=== PATIENT | female | born 1950 | race Caucasian/White ===

== ENCOUNTER 2016-09-14 12:46 | Outpatient (CLI) | payer MEDICARE, OTHER | END 2016-09-14 12:47 | disposition home or self-care (01) | DX: I10 Essential (primary) hypertension (principal); G47.33 Obstructive sleep apnea (adult) (pediatric) ==

== ENCOUNTER 2016-11-18 08:33 | Outpatient (CLI) | payer MEDICARE, OTHER ==
[2016-11-18 09:06] LABS: ALBUMIN/GLOBULIN RATIO 1.6 (1.0-2.2); BILIRUBIN,TOTAL 0.8 mg/dL (0.2-1.0); BUN - BLOOD UREA NITROGEN 18 mg/dL (6-20); CALCIUM 9.4 mg/dL (8.5-10.3); CARBON DIOXIDE - CO2 29 mmol/L (21-32); CHLORIDE 100 mmol/L (101-111); CHOL/HDL RATIO 3.1 (<4.4); CHOLESTEROL 256 mg/dL; CREATININE 0.7 mg/dL (0.4-1.0); GFR - MDRD 84 (>89); GLUCOSE 107 mg/dL (70-100); HDL CHOLESTEROL 82 mg/dL; POTASSIUM 3.6 mmol/L (3.5-5.0); SODIUM 136 mmol/L (135-145); TOTAL PROTEIN 6.6 g/dL (6.7-8.2); TRIGLYCERIDES 70 mg/dL; VLDL CHOLESTEROL 14 mg/dL
[2016-11-18 09:07] LABS: HEMOGLOBIN A1C 0.58 g/dL
== END 2016-11-18 08:34 | disposition home or self-care (01) ==
LOC: LAB 08:33
PROVIDERS: ATTEND Physician Assistant
DX: R73.01 Impaired fasting glucose (principal); I10 Essential (primary) hypertension; E78.5 Hyperlipidemia, unspecified
CPT/HCPCS: 36415; 80053; 80061; 83036

== ENCOUNTER 2017-02-08 08:33 | Outpatient (CLI) | payer MEDICARE, OTHER ==
[2017-02-08 09:23] LABS: BASOPHILS # (AUTO) 0.1 10^3/uL (0.0-0.1); BASOPHILS % (AUTO) 1.1 %; EOSINOPHILS # (AUTO) 0.1 10^3/uL (0.0-0.7); EOSINOPHILS % (AUTO) 2.2 %; HCT - HEMATOCRIT 40.6 % (37.0-47.0); HGB - HEMOGLOBIN 13.9 g/dL (12.0-16.0); LYMPHOCYTES # (AUTO) 2.4 10^3/uL (1.5-3.5); LYMPHOCYTES % (AUTO) 43.5 %; MEAN CORPUSCULAR HEMOGLOBIN 28.8 pg (27.0-31.0); MEAN CORPUSCULAR HGB CONC 34.1 g/dL (32.0-36.0); MEAN CORPUSCULAR VOLUME 84.4 fL (81.0-99.0); MEAN PLATELET VOLUME 7.3 fL (7.9-10.8); MONOCYTES # (AUTO) 0.3 10^3/uL (0.0-1.0); MONOCYTES % (AUTO) 5.8 %; NEUTROPHILS # (AUTO) 2.7 10^3/uL (1.5-6.6); NEUTROPHILS % (AUTO) 47.4 %; RED BLOOD COUNT 4.81 10^6/uL (4.20-5.40); RED CELL DISTRIBUTION WIDTH 13.4 % (12.0-15.0); UNCORRECTED WHITE BLOOD COUNT 5.6 x10^3/uL; WHITE BLOOD COUNT 5.6 x10^3/uL (4.8-10.8)
[2017-02-08 09:42] LABS: ALBUMIN/GLOBULIN RATIO 1.7 (1.0-2.2); CALCIUM 9.7 mg/dL (8.5-10.3); CREATININE 0.6 mg/dL (0.4-1.0); POTASSIUM 3.3 mmol/L (3.5-5.0)
== END 2017-02-08 08:34 | disposition home or self-care (01) ==
LOC: LAB 08:33
PROVIDERS: ATTEND Physician Assistant
DX: E78.5 Hyperlipidemia, unspecified (principal); I10 Essential (primary) hypertension
CPT/HCPCS: 36415; 80053; 85025

== ENCOUNTER 2017-03-09 11:43 | Outpatient (CLI) | payer MEDICARE, OTHER ==
[2017-03-09 12:18] LABS: ALBUMIN/GLOBULIN RATIO 1.6 (1.0-2.2); BILIRUBIN,TOTAL 0.8 mg/dL (0.2-1.0); CALCIUM 9.6 mg/dL (8.5-10.3); CREATININE 0.7 mg/dL (0.4-1.0); POTASSIUM 3.7 mmol/L (3.5-5.0); TOTAL PROTEIN 6.9 g/dL (6.7-8.2)
== END 2017-03-09 11:44 | disposition home or self-care (01) ==
LOC: LAB 11:43
PROVIDERS: ATTEND Family Medicine
DX: E87.6 Hypokalemia (principal)
CPT/HCPCS: 36415; 80053

== ENCOUNTER 2017-04-04 13:40 | Outpatient (CLI) | payer MEDICARE, OTHER | END 2017-04-04 13:41 | disposition home or self-care (01) | LOC: SC 13:40 | PROVIDERS: ATTEND Nurse Practitioner Family | DX: G47.33 Obstructive sleep apnea (adult) (pediatric) (principal) | CPT/HCPCS: 99214; G0463; 99212 ==

== ENCOUNTER 2017-05-12 10:52 | Outpatient (CLI) | payer MEDICARE, OTHER ==
--- NOTE | 2017-05-12 17:40 | XRAY Report ---
FOUR VIEW MANDIBLE: 05/12/2017 CLINICAL INDICATION: Jaw pain. Le's, AP, bilateral oblique views of the mandible demonstrate no evidence of mandibular fracture. The mandibular condyles are normally seated in the temporal fossa bilaterally. No mandibular condyl ar erosion is identified. IMPRESSION: NORMAL MANDIBLE. JOB #: [id number] EXT JOB #:[id number]
--- NOTE | 2017-05-12 17:41 | XRAY Report ---
COMPLETE CERVICAL SPINE: 05/12/2017 CLINICAL INDICATION: Neck pain. AP, lateral, odontoid, bilateral oblique views of the cervical spine demonstrate normal height and al ignment of the vertebral bodies. Mild facet arthropathy is present. There is no evidence of fractur es or subluxation. No significant osseous neural foraminal narrowing is present. IMPRESSION: MILD FACET ARTHROPATHY. JOB #: [id number] EXT JOB #:[id number]
--- NOTE | 2017-05-12 17:44 | XRAY Report ---
THREE VIEW LUMBAR SPINE: 05/12/2017 CLINICAL INDICATION: Back pain. AP, lateral, coned-down views of the lumbar spine demonstrate degenerative disk disease, with disk sp leia narrowing worst at L5-S1. There is no evidence of compression fracture or subluxation. The bettina l gas pattern is normal. IMPRESSION: DEGENERATIVE DISK DISEASE, WORST AT L5-S1. JOB #: [id number] EXT JOB #:[id number]
== END 2017-05-12 10:53 | disposition home or self-care (01) ==
LOC: DI 10:52
PROVIDERS: ATTEND Physician Assistant Medical
DX: R68.84 Jaw pain (principal); M47.892 Other spondylosis, cervical region; M51.36 Other intervertebral disc degeneration, lumbar region
CPT/HCPCS: 70110; 72050; 72100

== ENCOUNTER 2017-06-20 15:16 | Outpatient (CLI) | payer MEDICARE, OTHER ==
--- NOTE | 2017-06-22 15:59 | Mammography Report ---
DATE OF SERVICE: 06/20/2017 DIGITAL SCREENING MAMMOGRAM: 06/20/2017 CLINICAL INDICATION: A 66-year-old with history of late childbearing, personal history of left breast cancer, status post lumpectomy and radiation therapy. COMPARISON: 05/2016, 05/2015, 05/2014, 04/2013, 03/2012, 01/2011, 11/2009. TECHNIQUE: Routine CC and MLO projections were obtained of the breasts. FINDINGS: The breasts demonstrate scattered fibroglandular densities bilaterally. Coarse and punctate, typically benign calcifications are present. Postoperative and posttreatment changes in the left breast are stable. No suspicious masses, clustered microcalcifications, or regions of architectural distortion are identified. IMPRESSION: BENIGN FINDINGS. RECOMMENDATION: ROUTINE ANNUAL SCREENING UNLESS OTHERWISE CLINICALLY INDICATED. BIRADS CATEGORY 2-BENIGN FINDINGS. STANDARD QUALIFYING STATEMENTS: 1. This examination was reviewed with the aid of Computer-Aided Detection (CAD). 2. A negative or benign imaging report should not delay biopsy if clinically suspicious findings are present. Consider surgical consultation if warranted. More than 5% of cancers are not identified by imaging. 3. Dense breasts may obscure an underlying neoplasm. TD: 06/22/2017 16:58
== END 2017-06-20 15:17 | disposition home or self-care (01) ==
LOC: DI 15:16
PROVIDERS: ATTEND Physician Assistant Medical
DX: Z12.39 Encounter for other screening for malignant neoplasm of breast (principal); Z85.3 Personal history of malignant neoplasm of breast
CPT/HCPCS: 77067

== ENCOUNTER 2017-06-24 14:28 | Outpatient (CLI) | payer MEDICARE, OTHER ==
[2017-06-24 19:05] LABS: BASOPHILS # (AUTO) 0.1 10^3/uL (0.0-0.1); BASOPHILS % (AUTO) 1.1 %; EOSINOPHILS # (AUTO) 0.1 10^3/uL (0.0-0.7); EOSINOPHILS % (AUTO) 1.9 %; HGB - HEMOGLOBIN 14.7 g/dL (12.0-16.0); LYMPHOCYTES # (AUTO) 3.1 10^3/uL (1.5-3.5); LYMPHOCYTES % (AUTO) 45.8 %; MEAN CORPUSCULAR HEMOGLOBIN 28.9 pg (27.0-31.0); MEAN CORPUSCULAR HGB CONC 32.9 g/dL (32.0-36.0); MEAN CORPUSCULAR VOLUME 87.8 fL (81.0-99.0); MEAN PLATELET VOLUME 7.9 fL (7.9-10.8); MONOCYTES # (AUTO) 0.3 10^3/uL (0.0-1.0); MONOCYTES % (AUTO) 4.7 %; NEUTROPHILS # (AUTO) 3.1 10^3/uL (1.5-6.6); NEUTROPHILS % (AUTO) 46.5 %; PLT - PLATELET COUNT 267 10^3/uL (130-450); RED BLOOD COUNT 5.08 10^6/uL (4.20-5.40); RED CELL DISTRIBUTION WIDTH 13.1 % (12.0-15.0); WHITE BLOOD COUNT 6.8 x10^3/uL (4.8-10.8)
[2017-06-24 19:18] LABS: CALCIUM 9.5 mg/dL (8.5-10.3); CREATININE 0.7 mg/dL (0.4-1.0)
== END 2017-06-24 14:29 | disposition home or self-care (01) ==
LOC: LAB.WCP 14:28
PROVIDERS: ATTEND Physician Assistant Medical
DX: I10 Essential (primary) hypertension (principal); E55.9 Vitamin D deficiency, unspecified
CPT/HCPCS: 36415; 80048; 82306; 85025

== ENCOUNTER 2017-11-03 12:29 | Outpatient (CLI) | payer MEDICARE, OTHER ==
--- NOTE | 2017-11-03 14:28 | MRI Report ---
EXAM: MRI LUMBAR SPINE WITHOUT CONTRAST EXAM DATE: 11/03/2017 01:10 PM. CLINICAL HISTORY: Chronic low back pain. COMPARISON: Lumbar spine radiography from 05/12/2017. TECHNIQUE: Multiplanar, multisequence T1-weighted and fluid-sensitive sequences of the lumbar spine f rom T12 to S1 without contrast. Other: None. FINDINGS: Spinal Cord: The conus terminates at L1-L2. The conus medullaris and cauda equina are unremarkable. Alignment: No scoliosis or spondylolisthesis. Bone Marrow: Five [id number]-[id number] lumbar vertebral bodies are assumed. There is a probable hemangioma or focal fatty marrow deposit within the T12 vertebral body. Heterogeneous marrow signal composed of hematopoietic and fatty marrow. No bone lesions. No acute fracture. Disk Levels/Facets: T10-T11: Small left foraminal disk protrusion. Mild left foraminal stenosis. Note, axial images were not obtained at this disk level. T11-T12: Unremarkable. T12-L1: There is a small T1 isointense and T2 hypointense extradural focus within the left anterolate ral aspect of the spinal canal at the T12 level. This area is not imaged in the axial plane. L1-L2: There is a similar appearing small T1 isointense and T2 hypointense extradural focus within th e left anterolateral aspect of the spinal canal at the L1 level. This area is not imaged in the axial plane. L2-L3: Tiny right foraminal disk protrusion. Minimal right foraminal narrowing. L3-L4: Minimal disk bulge. Mild to moderate ligamentum flavum thickening and facet arthropathy. Mild right foraminal stenosis. L4-L5: Mild to moderate facet arthropathy. Mild to moderate right and mild left foraminal stenoses. L5-S1: Type I degenerative endplate changes. Moderate to severe disk space narrowing. Minimal disk bu lge. Mild facet arthropathy. Mild foraminal stenoses. Musculature: Mild fatty atrophy of the posterior paraspinal muscles. Other: The partially visualized retroperitoneum is unremarkable. IMPRESSION: 1. Small T1 isointense and T2 hypointense extradural foci of tissue within the left anterolateral asp ect of the spinal canal at the T12 and L1 levels. Differential may include part of the basivertebral venous plexus, extruded disk tissue or other mass lesion. These foci of tissue are not completely to luated or imaged on this exam. Recommend follow-up T1 and T2 weighted imaging without and with intrav enous contrast at these levels. 2. Moderate to severe disk space narrowing at L5-S1. Minimal disk bulge. Mild foraminal stenoses. 3. Tiny right foraminal disk protrusion at L2-L3. Minimal right foraminal narrowing. 4. Minimal disk bulge at L3-L4. Mild right foraminal stenosis. 5. Mild to moderate right and mild left foraminal stenoses at L4-L5. Comment: The following findings are so common in adults without low back pain that while we report th eir presence, they must be interpreted with caution and in the context of the clinical situation. (Re celeste Vogel et al, Spine 2001) Prevalence of findings in patients without low back pain: Disk degeneration (any evidence): 92% Disk desiccation/T2 signal loss: 83% Disk height loss: 56% Disk bulge: 64% Disk protrusion: 32% Annular tear/high intensity zone: 38% [facility] Referring Provider Line: [phone] SITE ID: [id number]
== END 2017-11-03 12:30 | disposition home or self-care (01) ==
LOC: DI 12:29
PROVIDERS: ATTEND Physician Assistant Medical
DX: M54.5 Low back pain (principal); C50.912 Malignant neoplasm of unspecified site of left female breast; M51.26 Other intervertebral disc displacement, lumbar region; M48.061 Spinal stenosis, lumbar region without neurogenic claudication
CPT/HCPCS: 72148

== ENCOUNTER 2017-11-15 13:33 | Outpatient (CLI) | payer MEDICARE, OTHER ==
[2017-11-15 13:52] LABS: BASOPHILS # (AUTO) 0.1 10^3/uL (0.0-0.1); BASOPHILS % (AUTO) 1.3 %; EOSINOPHILS # (AUTO) 0.2 10^3/uL (0.0-0.7); EOSINOPHILS % (AUTO) 2.5 %; HGB - HEMOGLOBIN 14.1 g/dL (12.0-16.0); LYMPHOCYTES # (AUTO) 2.9 10^3/uL (1.5-3.5); LYMPHOCYTES % (AUTO) 44.5 %; MEAN CORPUSCULAR HEMOGLOBIN 29.5 pg (27.0-31.0); MEAN CORPUSCULAR HGB CONC 34.2 g/dL (32.0-36.0); MEAN CORPUSCULAR VOLUME 86.3 fL (81.0-99.0); MONOCYTES # (AUTO) 0.4 10^3/uL (0.0-1.0); MONOCYTES % (AUTO) 6.3 %; NEUTROPHILS # (AUTO) 2.9 10^3/uL (1.5-6.6); NEUTROPHILS % (AUTO) 45.4 %; PLT - PLATELET COUNT 227 10^3/uL (130-450); RED BLOOD COUNT 4.78 10^6/uL (4.20-5.40); RED CELL DISTRIBUTION WIDTH 13.3 % (12.0-15.0); WHITE BLOOD COUNT 6.5 x10^3/uL (4.8-10.8)
[2017-11-15 14:06] LABS: ALBUMIN 4.1 g/dL (3.2-5.5); ALBUMIN/GLOBULIN RATIO 1.5 (1.0-2.2); BILIRUBIN,TOTAL 0.7 mg/dL (0.2-1.0); CALCIUM 9.5 mg/dL (8.5-10.3); CREATININE 0.6 mg/dL (0.4-1.0); TOTAL PROTEIN 6.8 g/dL (6.7-8.2)
== END 2017-11-15 13:34 | disposition home or self-care (01) ==
LOC: LAB 13:33
PROVIDERS: ATTEND Family Medicine
DX: R53.83 Other fatigue (principal); I10 Essential (primary) hypertension; M54.5 Low back pain
CPT/HCPCS: 36415; 80053; 84443; 85025

== ENCOUNTER 2017-11-17 12:47 | Outpatient (CLI) | payer MEDICARE, OTHER ==
[2017-11-17] MEDS ORDERED: GADOBUTROL 10 MMOL/10 ML VIAL IVP ONE (13:36)
[2017-11-17] MEDS ORDERED: GADOBUTROL 10 MMOL/10 ML VIAL ONE (17:45)
--- NOTE | 2017-11-18 11:57 | MRI Report ---
EXAM: MRI LUMBAR SPINE WITHOUT AND WITH CONTRAST EXAM DATE: 11/17/2017 01:58 PM. CLINICAL HISTORY: 67-year-old female. Prior noncontrast MRI lumbar spine from 11/03/2017 suggesting T 1 isointense and T2 hypointense extradural foci of tissue within the left anterolateral aspect of spi nal canal at T12 and L1 levels. History of chronic low back pain. COMPARISONS: MRI lumbar spine 11/03/2017 TECHNIQUE: Multiplanar, multisequence T1-weighted and fluid-sensitive sequences of the lumbar spine f rom T12 to S1 before and after administration of intravenous contrast. Other: None. IV contrast: 8.5 mL Gadavist . FINDINGS: Spinal Cord: The conus terminates at L1. The conus medullaris and cauda equina are unremarkable. Alignment: No scoliosis or spondylolisthesis. Bone Marrow: Five tkb-hfi-btfyjmr lumbar vertebral bodies are assumed. No evidence of acute fracture. Diffusely heterogeneous and mottled appearance of the bone marrow, differential considerations invol ving both benign and malignant marrow replacing processes, commonly fatty replacement of the marrow. Modic type I degenerative endplate changes at L5-S1 level with endplate edema and enhancement. No bon e marrow edema elsewhere. T1 and T2 hyperintense lesions within T12, L3, and L4 levels are nonspecifi c, may represent benign hemangiomata. Similar to prior study performed on 11/03/2017, nonenhancing T2 hypointensity within the left anterio r epidural space at T12 level (series 601 image 15) and L1 level (series 601 image 10). No significant central canal narrowing at any visualized level. Mild bilateral foraminal narrowing at L2-L3 level. Irnu-fj-lzoatzce right and mild left foraminal narrowing at L3-L4 level. Bszn-fz-vzfrum te bilateral foraminal narrowing at L4-L5 level mild bilateral foraminal narrowing at L5-S1. Spinal Canal: No enhancing masses within the spinal canal. No epidural abscess. Musculature: Normal. No edema, abnormal enhancement, or fatty atrophy. Other: The visualized retroperitoneum is unremarkable. IMPRESSION: 1. Similar to prior study performed on 11/03/2017, nonenhancing T2 hypointensity within the left ante rior epidural space at T12 level (series 601 image 15) and L1 level (series 601 image 10). The etiolo gy is therefore likely benign, may represent chronic disk material versus venous structures, unlikely to represent a mass. There is no associated central canal narrowing. 2. Diffusely heterogeneous and mottled appearance of the bone marrow, differential considerations inv olving both benign and malignant marrow replacing processes, commonly fatty replacement of the marrow . 3. Modic type I degenerative endplate changes at L5-S1 level with endplate edema and enhancement. Mod ic type 1 changes may represent a source of pain. 4. No significant central canal narrowing at any visualized level. Mild bilateral foraminal narrowing at L2-L3 level. Btgp-xj-lhvekzqc right and mild left foraminal narrowing at L3-L4 level. Mild-to-mod erate bilateral foraminal narrowing at L4-L5 level mild bilateral foraminal narrowing at L5-S1. Comment: The following findings are so common in adults without low back pain that while we report th eir presence, they must be interpreted with caution and in the context of the clinical situation. (Re celeste Vogel et al, Spine 2001) Prevalence of findings in patients without low back pain: Disk degeneration (any evidence): 92% Disk desiccation/T2 signal loss: 83% Disk height loss: 56% Disk bulge: 64% Disk protrusion: 32% Annular tear/high intensity zone: 38% [facility] Referring Provider Line: [phone] SITE ID: [id number]
== END 2017-11-17 12:48 | disposition home or self-care (01) ==
LOC: LAB 12:47
PROVIDERS: ATTEND Family Medicine
DX: M54.5 Low back pain (principal); G89.29 Other chronic pain; R53.83 Other fatigue; I10 Essential (primary) hypertension; R93.7 Abnormal findings on diagnostic imaging of other parts of musculoskeletal system; M89.8X8 Other specified disorders of bone, other site; R93.8 Abnormal findings on diagnostic imaging of other specified body structures; M48.061 Spinal stenosis, lumbar region without neurogenic claudication; M48.07 Spinal stenosis, lumbosacral region
CPT/HCPCS: 72158; A9585